=== PATIENT | female | born 1960 | race Caucasian/White ===

== ENCOUNTER 2019-03-09 22:51 | Emergency (ER) | payer OTHER ==
[~2019-03-09] VITALS: Ht 160 cm; Wt 72.6 kg
== END 2019-03-10 12:41 | disposition home or self-care (01) ==
LOC: ER 22:51 → CPU-OBS 23:23 → ER 23:23 → CPU-OBS 03-10 12:41
DX: K21.9 Gastro-esophageal reflux disease without esophagitis (principal); R94.5 Abnormal results of liver function studies; R07.89 Other chest pain; F41.8 Other specified anxiety disorders